=== PATIENT | male | born 1965 | race African-American/Black ===

== ENCOUNTER 2023-04-21 12:08 | Outpatient (CLI) | payer BC, OTHER | END 2023-04-21 12:09 | disposition home or self-care (01) | LOC: CSHRAD 12:08 | PROVIDERS: ATTEND Internal Medicine Gastroenterology | DX: R63.4 Abnormal weight loss (principal) | CPT/HCPCS: 71046 ==

== ENCOUNTER 2024-04-25 19:54 | Inpatient (IN) | payer BC, OTHER ==
[2024-04-25] MEDS ORDERED: Ondansetron PF 4 MG/2 ML Vial IVP PRN (21:22)
[2024-04-25] MEDS ORDERED: Guaifenesin DM 100-10/5 ML UDCUP PO PRN (21:22)
[2024-04-25] MEDS ORDERED: Bisacodyl 5 MG TAB PO PRN (21:22)
[2024-04-25] MEDS ORDERED: Electrolyte Replacement Protocol 1 EACH IVPB PRN (21:22)
[2024-04-25] MEDS ORDERED: INSULIN REGULAR IN 0.9 % NACL 100 ML IVPB SCH (21:30)
[2024-04-25 21:58] LABS: Actual Bicarbonate (HCO3v) 19.1 mEq/L (22-28); Analyzer IN Cardio CS ER; Base Excess -5.7 mEq/L (-2 - +2); Calcium, Ionized (venous) 1.12 mmol/L (1.16-1.32); Chloride (VBG) 106 mmol/L (98-106); Critical Notified By: CP.PH; Hematocrit-VBG 36 % (42.0-52.0); Hemoglobin (Hb) 12.2 g/dL (13.1-17.2); Potassium (VBG) 4.22 mmol/L (3.70-5.30); Puncture Site Other Site; Sodium 144 mmol/L (133-146); pH (venous) 7.352 (7.32-7.43)
[2024-04-25 22:06] LABS: Anion Gap 20 mmol/L (10-20); BUN (Urea Nitrogen) 21 mg/dL (8.4-25.7); Calc. Creatinine Clearance 0 mL/min (70-130); Calcium 9.2 mg/dL (7.8-10.44); Carbon Dioxide 19 mmol/L (23-31); Chloride 107 mmol/L (98-107); Estimated GFR 50; Glucose 316 mg/dL (80-115); Potassium 4.3 mmol/L (3.5-5.1); Sodium 142 mmol/L (136-145)
[2024-04-25 22:07] LABS: Magnesium 2.1 mg/dL (1.6-2.6)
[2024-04-25 22:53] VITALS: BMI 16.9
[2024-04-25] MEDS: Lactulose 20 GM (30 mL) UDCUP PO SCH (23:02)
[2024-04-25] MEDS: PHOS-NAK 1 PKT PACK PO SCH (23:03)
[2024-04-25] MEDS: Senokot S 8.6-50 MG TAB PO SCH (23:03)
[2024-04-25] MEDS: Pantoprazole 40 MG VIAL IVP SCH (23:03)
[2024-04-25] MEDS: Lactated Ringer's 1,000 ML IV SCH (23:08)
[2024-04-25] MEDS: Dextrose 5%-Lactated Ringers 1,000 ML IV SCH (23:40)
[2024-04-26 04:33] LABS: #Basophils 0.05 10x3/uL (0.0-0.2); #Eosinophils 0.11 10x3/uL (0.0-0.5); #Monocytes 0.71 10x3/uL (0.0-1.1); #Neutrophils 6.47 10x3/uL (1.5-8.4); %Basophils 0.6 % (0.0-2.0); %Eosinophils 1.3 % (0.0-6.0); %Monocytes 8.3 % (0.0-10.0); %Neutrophils 75.2 % (40.0-75.0); Hematocrit 27.7 % (38.8-50.0); Hemoglobin 9.4 g/dL (13.5-17.5); Mean Corpuscular HGB CONC 33.9 g/dL (32.0-36.0); Mean Corpuscular Hemoglobin 32.8 pg (27.0-33.0); Mean Corpuscular Volume 96.5 fL (81.2-95.1); Mean Platelet Volume 10.5 fL (7.4-10.4); Platelet Count 274 10x3/uL (150-450); RBC Distribution Width 13.2 % (11.5-14.5); Red Blood Cell (RBC) Count 2.87 10x6/uL (4.32-5.72); White Blood Cell (WBC) Count 8.6 10x3/uL (3.5-10.5)
[2024-04-26 04:45] LABS: Anion Gap 13 mmol/L (10-20); BUN (Urea Nitrogen) 16 mg/dL (8.4-25.7); Calc. Creatinine Clearance 37 mL/min (70-130); Calcium 8.3 mg/dL (7.8-10.44); Carbon Dioxide 21 mmol/L (23-31); Chloride 107 mmol/L (98-107); Estimated GFR 64; Glucose 242 mg/dL (80-115); Potassium 4.2 mmol/L (3.5-5.1); Sodium 137 mmol/L (136-145)
[2024-04-26 04:59] LABS: Free T4 (Free Thyroxine) 0.67 ng/dL (0.70-1.48); Thyroid Stimulating Hormone 26.387 uIU/mL (0.35-4.94)
[2024-04-26] MEDS ORDERED: Glucagon 1 MG/ML KIT IM PRN (05:09)
[2024-04-26] MEDS ORDERED: Dextrose 5% in Water 1,000 ML IV PRN (05:09)
[2024-04-26] MEDS: Lantus 1000 UNITS/10 ML VIAL SC SCH ×2 (05:26→18:25)
[2024-04-26] MEDS: Levothyroxine Sodium 100 MCG TAB PO SCH (05:27)
[2024-04-26] MEDS: Levothyroxine Sodium 75 MCG TAB PO SCH (05:28)
[2024-04-26] MEDS: Potassium Phosphate 15 MMOL, Admixture Fee 1 EACH in Sodium Chloride 0.9% 100 ML IVPB SCH ×2 (06:02→06:14)
[2024-04-26] MEDS: Dextrose 50% Abboject 50 ML SYRINGE SLOW IVP PRN (06:46)
[2024-04-26] MEDS: Multivitamin W/ Minerals 1 TAB PO SCH (09:31)
[2024-04-26] MEDS: Senokot S 8.6-50 MG TAB PO SCH (09:31)
[2024-04-26] MEDS: Polyethylene Glycol 3350 17 GM Packet PO SCH (09:31)
[2024-04-26] MEDS: Enoxaparin 30 MG (0.3 mL) SYRINGE SC SCH (09:31)
[2024-04-26] MEDS: Folic Acid 1 MG TAB PO SCH (09:32)
[2024-04-26] MEDS: Pantoprazole DR 40 MG TAB PO SCH (09:32)
[2024-04-26] MEDS: Cyanocobalamin (Vitamin B-12) 1,000 MCG TAB PO SCH (09:32)
[2024-04-26] MEDS: busPIRone HCl 5 MG TAB PO SCH (09:32)
[2024-04-26] MEDS: Rosuvastatin 20 MG TAB PO SCH (09:33)
[2024-04-26] MEDS: Bisacodyl 5 MG TAB PO SCH (09:34)
[2024-04-26 10:05] LABS: Cardiac Risk 5.4 (Less than 4.5); Cholesterol 258 mg/dl (< 200 Desired); HDL Cholesterol 48 mg/dL (>60 Neg Risk); LDL Cholesterol, Calculated 190 mg/dL; Phosphorus 2.7 mg/dL (2.3-4.7); Triglycerides 102 mg/dL (Less than 150)
[2024-04-26 11:41] VITALS: BMI 16.9
[2024-04-26 11:41] LABS: Anion Gap 13 mmol/L (10-20); BUN (Urea Nitrogen) 13 mg/dL (8.4-25.7); Calc. Creatinine Clearance 44 mL/min (70-130); Calcium 8.3 mg/dL (7.8-10.44); Carbon Dioxide 21 mmol/L (23-31); Chloride 103 mmol/L (98-107); Estimated GFR 77; Glucose 253 mg/dL (80-115); Potassium 4.3 mmol/L (3.5-5.1); Sodium 133 mmol/L (136-145)
[2024-04-26] MEDS: Insulin Lispro 100 UNIT/ML 10 ML VIAL SC PRN (12:42)
[2024-04-26 12:56] LABS: Hemoglobin A1c Greater than 14.0 % (4.0-6.0)
[2024-04-26 16:54] LABS: Iron 92 ug/dL (65-175); Iron Binding Capacity, Total 211 mcg/dL (261-462)
[2024-04-26] MEDS: Acetaminophen 325 MG TAB PO PRN (20:02)
[2024-04-26] MEDS: Calcium Carbonate 500 MG ChewTAB PO PRN (20:08)
[2024-04-26] MEDS: Mirtazapine 15 MG TAB PO SCH (20:08)
[2024-04-26] MEDS ORDERED: Atorvastatin Calcium 20 MG TAB PO SCH (21:00)
[2024-04-27] MEDS: Dextrose 50% Abboject 50 ML SYRINGE SLOW IVP PRN (01:34)
[2024-04-27 04:35] LABS: Magnesium 1.8 mg/dL (1.6-2.6)
[2024-04-27] MEDS: PHOS-NAK 1 PKT PACK PO SCH (05:52)
[2024-04-27] MEDS: Magnesium 2 GM/50 ML(in water) 2 GM in Premix 1 BAG IVPB SCH (05:53)
[2024-04-27 09:13] LABS: #Basophils 0.04 10x3/uL (0.0-0.2); #Eosinophils 0.18 10x3/uL (0.0-0.5); #Monocytes 0.77 10x3/uL (0.0-1.1); %Basophils 0.5 % (0.0-2.0); %Lymphocytes 13.7 % (18.0-47.0); %Monocytes 8.7 % (0.0-10.0); %Neutrophils 74.3 % (40.0-75.0); Hematocrit 28.4 % (38.8-50.0); Hemoglobin 9.5 g/dL (13.5-17.5); Mean Corpuscular HGB CONC 33.5 g/dL (32.0-36.0); Mean Corpuscular Hemoglobin 32.9 pg (27.0-33.0); Mean Corpuscular Volume 98.3 fL (81.2-95.1); Mean Platelet Volume 10.6 fL (7.4-10.4); Platelet Count 248 10x3/uL (150-450); RBC Distribution Width 13.3 % (11.5-14.5); Red Blood Cell (RBC) Count 2.89 10x6/uL (4.32-5.72); White Blood Cell (WBC) Count 8.9 10x3/uL (3.5-10.5)
[2024-04-27 09:41] LABS: Anion Gap 11 mmol/L (10-20); BUN (Urea Nitrogen) 13 mg/dL (8.4-25.7); Calc. Creatinine Clearance 55 mL/min (70-130); Calcium 8.7 mg/dL (7.8-10.44); Carbon Dioxide 28 mmol/L (23-31); Chloride 103 mmol/L (98-107); Estimated GFR 98; Glucose 82 mg/dL (80-115); Potassium 4.4 mmol/L (3.5-5.1); Sodium 138 mmol/L (136-145)
[2024-04-27] MEDS: Bisacodyl 5 MG TAB PO SCH (09:51)
[2024-04-27] MEDS: Lantus 1000 UNITS/10 ML VIAL SC SCH (09:52)
[2024-04-27] MEDS: Lactulose 20 GM (30 mL) UDCUP PO SCH (12:34)
[2024-04-28 04:05] LABS: #Basophils 0.02 10x3/uL (0.0-0.2); #Eosinophils 0.17 10x3/uL (0.0-0.5); #Neutrophils 5.09 10x3/uL (1.5-8.4); %Basophils 0.3 % (0.0-2.0); %Eosinophils 2.3 % (0.0-6.0); %Lymphocytes 19.8 % (18.0-47.0); %Monocytes 9.3 % (0.0-10.0); %Neutrophils 67.9 % (40.0-75.0); Hematocrit 26.6 % (38.8-50.0); Hemoglobin 8.9 g/dL (13.5-17.5); Mean Corpuscular HGB CONC 33.5 g/dL (32.0-36.0); Mean Corpuscular Hemoglobin 33.6 pg (27.0-33.0); Mean Corpuscular Volume 100.4 fL (81.2-95.1); Mean Platelet Volume 10.9 fL (7.4-10.4); Platelet Count 241 10x3/uL (150-450); RBC Distribution Width 13.4 % (11.5-14.5); Red Blood Cell (RBC) Count 2.65 10x6/uL (4.32-5.72); White Blood Cell (WBC) Count 7.5 10x3/uL (3.5-10.5)
[2024-04-28 05:06] LABS: Anion Gap 11 mmol/L (10-20); BUN (Urea Nitrogen) 12 mg/dL (8.4-25.7); Calc. Creatinine Clearance 59 mL/min (70-130); Calcium 8.4 mg/dL (7.8-10.44); Carbon Dioxide 25 mmol/L (23-31); Chloride 106 mmol/L (98-107); Estimated GFR 100; Glucose 131 mg/dL (80-115); Magnesium 1.9 mg/dL (1.6-2.6); Phosphorus 2.7 mg/dL (2.3-4.7); Sodium 138 mmol/L (136-145)
[2024-04-28] MEDS: Magnesium 2 GM/50 ML(in water) 2 GM in Premix 1 BAG IVPB SCH (10:03)
[2024-04-28] MEDS: Lantus 1000 UNITS/10 ML VIAL SC SCH (10:25)
[2024-04-28] MEDS: Bisacodyl 10 MG SUPP PR SCH (11:32)
[2024-04-28] MEDS: GoLYTELY 4,000 ml Bottle PO SCH (11:32)
[2024-04-29 04:46] LABS: Anion Gap 11 mmol/L (10-20); BUN (Urea Nitrogen) 12 mg/dL (8.4-25.7); Calc. Creatinine Clearance 57 mL/min (70-130); Calcium 8.5 mg/dL (7.8-10.44); Carbon Dioxide 27 mmol/L (23-31); Chloride 105 mmol/L (98-107); Estimated GFR 99; Glucose 80 mg/dL (80-115); Potassium 4.1 mmol/L (3.5-5.1); Sodium 139 mmol/L (136-145)
[2024-04-29 04:53] LABS: #Basophils 0.04 10x3/uL (0.0-0.2); #Eosinophils 0.19 10x3/uL (0.0-0.5); #Monocytes 1.06 10x3/uL (0.0-1.1); #Neutrophils 4.92 10x3/uL (1.5-8.4); %Basophils 0.5 % (0.0-2.0); %Eosinophils 2.3 % (0.0-6.0); %Lymphocytes 25.8 % (18.0-47.0); %Monocytes 12.6 % (0.0-10.0); %Neutrophils 58.2 % (40.0-75.0); Hematocrit 25.7 % (38.8-50.0); Hemoglobin 8.5 g/dL (13.5-17.5); Mean Corpuscular HGB CONC 33.1 g/dL (32.0-36.0); Mean Corpuscular Hemoglobin 33.3 pg (27.0-33.0); Mean Corpuscular Volume 100.8 fL (81.2-95.1); Mean Platelet Volume 10.1 fL (7.4-10.4); Platelet Count 229 10x3/uL (150-450); RBC Distribution Width 13.3 % (11.5-14.5); Red Blood Cell (RBC) Count 2.55 10x6/uL (4.32-5.72); White Blood Cell (WBC) Count 8.4 10x3/uL (3.5-10.5)
[2024-04-29] MEDS: Magnesium 2 GM/50 ML(in water) 2 GM in Premix 1 BAG IVPB SCH (06:14)
[2024-04-29 12:11] VITALS: BP 101/58; TEMP 98.8
== END 2024-04-29 15:27 | disposition home or self-care (01) | DRG 638 ==
LOC: CSHTELE 20:55
PROVIDERS: ADMIT Student in an Organized Health Care Education/Training Program; ATTEND Internal Medicine
DX: E11.10 Type 2 diabetes mellitus with ketoacidosis without coma (principal); E44.0 Moderate protein-calorie malnutrition; K56.7 Ileus, unspecified; N17.9 Acute kidney failure, unspecified; Z68.1 Body mass index [BMI] 19.9 or less, adult; R64 Cachexia; K59.09 Other constipation; E78.00 Pure hypercholesterolemia, unspecified; E03.8 Other specified hypothyroidism; Z79.890 Hormone replacement therapy; D53.9 Nutritional anemia, unspecified; F41.9 Anxiety disorder, unspecified; E11.22 Type 2 diabetes mellitus with diabetic chronic kidney disease; N18.30 Chronic kidney disease, stage 3 unspecified; E86.0 Dehydration; Z88.0 Allergy status to penicillin; Z79.899 Other long term (current) drug therapy; Z79.4 Long term (current) use of insulin
CPT/HCPCS: 36415; 36416; 74018; 80048; 80061; 82010; 82728; 82805; 83036; 83540; 83550; 83735; 84100; 84439; 84443; 85025; J1650; J1815; J2470; J3475; J7120; J7999